=== PATIENT | female | born 1945 | race Caucasian/White ===

== ENCOUNTER 2016-11-21 11:52 | Day surgery (SDC) | payer MEDICARE ==
[~2016-11-21] VITALS: Ht 167.6 cm; Wt 46.5 kg
[~2016-11-21 11:52] MED LIST: CARV3.12 PO; LISI-357 PO; PLAV75TA PO; ROSU5 PO
[2016-11-21] MEDS: POVIDONE IODINE 5% (ANTISEPSIS KIT) 4 APPLICATIONS EACH NARE SCH ×2 (12:13→12:19)
[2016-11-21] MEDS: CHLORHEXIDINE GLUCONATE 2 % 1 PACK (2 CLOTHS) TOPICAL SCH ×2 (12:14→12:19)
[2016-11-21] MEDS ORDERED: VANCOMYCIN 1000 MG/NS 250 ML IV SCH ×2 (12:15)
[2016-11-21] MEDS ORDERED: MUPIROCIN 2% OINT 1 APPLIC/GM SYR NASAL SCH (12:15)
[2016-11-21 12:46] VITALS: BP 134/73; PULSE 56; RESP 18; TEMP 97.7; O2SAT 100
[2016-11-21] MEDS ORDERED: ASPI1TAB69 PO (12:53)
[2016-11-21] MEDS ORDERED: BECL80AE3 INH (12:53)
[2016-11-21] MEDS ORDERED: VITA100064 PO (12:53)
[2016-11-21] MEDS ORDERED: VENTAER INH (12:53)
[2016-11-21] MEDS ORDERED: MIDAZOLAM HCL 2 MG/2 ML VIAL ONE (13:40)
[2016-11-21] MEDS ORDERED: LIDOCAINE HCL 2% 50 ML VIAL ONE (13:54)
--- NOTE | 2016-11-22 21:41 | EKG ---
Date Performed: 11/21/2016 Time Performed: 12:52:10 PTAGE: 71 years EKG: Sinus bradycardia. Poor R wave progression - probable normal variant Since previous tracing , no significant change noted Borderline ECG PREVIOUS TRACING : 09/17/14 10.20.40 DOCTOR: Genet De Souza Interpretating Date/Time 11/22/2016 21:40:04
--- NOTE | 2016-11-23 11:47 | MR ---
cc: MALKA SHRESTHA DATE: 11/21/2016 INDICATION TIA, status post placement of Medtronic Reveal LINQ loop monitor. PROCEDURE PERFORMED 1. Interrogation of Med[employer]onic Reveal LINQ monitor. 2. Explantation of Medtronic Reveal LINQ monitor. 3. Moderate sedation. ACCESS SITE Left anterior chest. PROCEDURE The patient was prepped and draped in the usual sterile manner and moderate sedation was administered. A small incision was made in the left anterior chest over the device. The device was removed without difficulty. The wound was closed. The patient remained stable. Interrogation of the device showed no recent arrhythmias. DIAGNOSIS Successful explantation of Medtronic Reveal LINQ loop monitor. DISPOSITION Ms. Watt will be monitored after her procedure. She will be discharged home later today. I will see her back for follow-up in our office after discharge. MD LETA Kuhn/SHANNA /2:25 PM /11:39 AM BERRY
== END 2016-11-21 16:40 | disposition home or self-care (01) ==
LOC: HDIC 11:52 → HDOC 11:52
PROVIDERS: ATTEND Internal Medicine Interventional Cardiology
DX: Z45.09 Encounter for adjustment and management of other cardiac device (principal); G45.9 Transient cerebral ischemic attack, unspecified; I34.0 Nonrheumatic mitral (valve) insufficiency; I42.9 Cardiomyopathy, unspecified; E78.5 Hyperlipidemia, unspecified
CPT/HCPCS: 33284; 93005; J2250; J3010; J3370; J7050

== ENCOUNTER 2016-11-26 18:58 | Emergency (ER) | payer MEDICARE ==
[~2016-11-26] VITALS: Ht 168.9 cm; Wt 47.0 kg
[~2016-11-26 18:58] MED LIST changes: +ASPI1TAB69 PO; +BECL80AE3 INH; -CARV3.12 PO; -LISI-357 PO; -PLAV75TA PO; -ROSU5 PO; +VENTAER INH; +VITA100064 PO
[2016-11-26 19:02] VITALS: BP 146/67; PULSE 77; RESP 16; TEMP 97.5; O2SAT 96
--- NOTE | 2016-11-26 21:42 | PD ---
HPI Chief Complaint: Wound/Suture/Staple Re-Check Time Seen by Provider: 21:37 Travel History International Travel<30 days: No Contact w/Intl Traveler<30days: No Traveled to known affect area: No History of Present Illness HPI 71-year-old white female presents to emergency department, he by her for evaluation of a left chest wound that has not closed up after having a loop recorder removed one week ago. The patient states that Dr. Chao removed her left recorder last week and placed Steri-Strips on her wound. She states that the Steri-Strips for supposed to be on for 10 days but unfortunately she had noticed that they had lifted up today and there is a small amount of drainage. She denies any fever or chills. No tenderness. No redness. She presents for evaluation. PFSH Past Medical History Hx Anticoagulant Therapy: Yes (ASA) Anemia: Yes Asthma: Yes Cancer: No Cardiovascular Problems: Yes (PALPITATIONS) High Cholesterol: Yes Chest Pain: No Diabetes: No Diminished Hearing: No Gastrointestinal Disorders: No Glaucoma: No Hepatitis: No Hiatal Hernia: No Hypertension: Yes Respiratory: Yes (ASTHMA) Integumentary: No Migraines: Yes Thyroid Disease: No Menopausal: Yes : 3 Para: 3 Dilation and Curettage (D&C): Yes Tubal Ligation: Yes Past Surgical History Oral Surgery: Yes (DENTURES) Thoracic Surgery: Yes Other Surgery: Yes (HEART MONITOR IN PLACE- INSERTED--2013) Social History Alcohol Use: No Tobacco Use: Yes Substance Use: No Allergies-Medications (Allergen,Severity, Reaction): Coded Allergies: CRESTOR (Verified Allergy, Severe, 11/26/16) Penicillin (Verified Allergy, Unknown, 11/26/16) Reported Meds & Prescriptions Reported Meds & Active Scripts Active Reported Aspirin 81 Mg Tabdr 81 Mg PO DAILY Vitamin D (Cholecalciferol) 1,000 Unit Tab 2,000 Units PO DAILY Ventolin Hfa 18 GM Inh (Albuterol Sulfate) 90 Mcg/Act Aer 2 Puff INH Q4-6H PRN Qvar Inh (Beclomethasone Dipropionate) 80 Mcg/Act Aero 2 Puff INH BID Review of Systems Except as stated in HPI: all other systems reviewed are Neg General / Constitutional: No: Fever, Chills Cardiovascular: No: Chest Pain or Discomfort Respiratory: No: Cough, Shortness of Breath Gastrointestinal: No: Nausea, Vomiting Skin: No Rash, No Itching Physical Exam Narrative GENERAL: This is a well-nourished, well-developed patient, in no apparent distress. The patient's exam with the nurse present. SKIN: No rashes, ecchymoses or lesions. The patient has Steri-Strips to her left breast. These are partially elevated off. They are completely removed revealing a 1 cm incision. Incision has a small amount of serous drainage. It is noted that I suspect that wound adhesive was on the skin and into the hole and was blocking the wound from healing. There is no erythema, tenderness or warmth. HEAD: Atraumatic. Normocephalic. EYES: PERRL, EOMI, no discharge or injection. No scleral icterus. EARS: Clear NOSE: Nasal turbinates appear normal. THROAT: Mucosa pink and moist. Airway patent. NECK: Trachea midline. supple, moves head freely. LUNGS: Clear to auscultation. CV: Regular in rhythm. ABDOMEN: Soft nontender. EXT: No clubbing cyanosis or edema. Data Data Last Documented VS Vital Signs Date Time Temp Pulse Resp B/P Pulse Ox O2 Delivery O2 Flow Rate FiO2 11/26/16 19:02 97.5 77 16 146/67 96 Room Air MDM Medical Decision Making Medical Screen Exam Complete: Yes Emergency Medical Condition: Yes Medical Record Reviewed: Yes Differential Diagnosis MDM: High Differential diagnoses: Abscess, folliculitis, cellulitis, wound infection, delayed healing Narrative Course The skin is cleansed and a culture has been collected. At this point I do not believe that this is a true infection. I suspect that wound adhesive was within the wound and not allowing the edges to adhere. The dressing has been removed. The skin is been cleansed and cultured. A new dressing with Steri- Strips have been applied. The patient is bites to follow-up with her doctor in the next 2-3 days and follow-up on culture results. This is left chest wound check Diagnosis Primary Impression: left chest wound check Patient Instructions: General Instructions Additional Instructions: Rest. Keep clean and dry. Recheck with your doctor in the next 2-3 days. Follow-up on her culture results in 2 days. Med/Other Pt SpecificInfo: No Change to Meds Disposition: 01 DISCHARGE HOME Condition: Stable [place] PA Nov 26, 2016 21:42
== END 2016-11-26 21:57 | disposition home or self-care (01) ==
LOC: NETRI 18:58
DX: T81.89XA Other complications of procedures, not elsewhere classified, initial encounter (principal); I10 Essential (primary) hypertension; E78.00 Pure hypercholesterolemia, unspecified; Z79.82 Long term (current) use of aspirin; D64.9 Anemia, unspecified; Z72.0 Tobacco use
CPT/HCPCS: 87070; 87205; 99283